=== PATIENT | male | born 1960 | race African-American/Black ===

== ENCOUNTER 2020-12-07 00:53 | Emergency (ER) | payer MEDICAID ==
[~2020-12-07] VITALS: Ht 172.7 cm; Wt 91.0 kg
[2020-12-07 00:56] VITALS: BP 109/60
[2020-12-07] MEDS ORDERED: ONDANSETRON HCL 4MG/2ML INJ IV STA (01:29)
[2020-12-07] MEDS ORDERED: SODIUM CHLORIDE 0.9% 1,000 ML IV ONE (01:30)
== END 2020-12-07 02:28 | disposition left against medical advice (07) ==
LOC: ER 00:53
DX: Z53.29 Procedure and treatment not carried out because of patient's decision for other reasons (principal); I10 Essential (primary) hypertension; Z86.73 Personal history of transient ischemic attack (TIA), and cerebral infarction without residual deficits
CPT/HCPCS: 93005; 99283; J7030